=== PATIENT | male | born 1945 | race Caucasian/White ===

== ENCOUNTER 2017-08-26 21:48 | Emergency (ER) | payer OTHER, BC ==
--- NOTE | 2017-08-26 21:50 | PDOC ---
History of Present Illness - History of Present Illness Initial Comments: 08/26/17 22:10 Patient is a 73M who presents today s/p left thumb injury. Patient states that he was slicing coleslaw with a mandolin when he sliced the skin off of the tip of his left thumb. Patient states that it began bleeding profusely and he wrapped it multiple times but the bleeding did not cease so he came to the ER. Patient denies any current pain. Patient is unable to recall his last tetanus. Patient states he is not on blood thinners. ROS General: No fevers or chills, no weakness, no weight loss HEENT: No change in vision. No sore throat, No ear pain Cardiovascular: No chest pain or shortness of breath Respiratory:No cough, or wheezing. Gastrointestinal: No nausea, vomiting, diarrhea or constipation, No rectal bleeding Genitourinary: No dysuria, hematuria, or frequency Musculoskeletal: No joint or muscle pain or swelling Neurologic: No headache, vertigo, dizziness or loss of consciousness Psychiatric: No depression Skin: + laceration to distal portion of left thumb. No rashes or easy bruising Endocrine: No increased thirst or abnormal weight change Allergic: No skin or latex allergy All other systems reviewed and normal PE GENERAL: The patient is awake, alert, and fully oriented, in no acute distress. HEAD: Normal with no signs of trauma. EYES: Pupils equal, round and reactive to light, extraocular movements intact, sclera anicteric, conjunctiva clear. EXTREMITIES: Normal range of motion, no edema. NEUROLOGICAL: Normal speech, normal gait. PSYCH: Normal mood, normal affect. SKIN: 1 cm evulsion to tip of the left thumb. Evulsion does not extend deeper than the superficial fat. <Patricia Jean - Last Filed: 08/26/17 22:15> - General History Source: Patient Exam Limitations: No Limitations - History of Present Illness Initial Comments: A portion of this note was documented by scribe services under my direction. I have reviewed the details of the note, within reason, and agree with the documentation. The case summary and management plan written by me. Procedure note: A tourniquet was placed on the finger and tightened in tell there was no bleeding from the avulsed area. The avulsed area was then closed with Dermabond and the tourniquet was removed with no further bleeding from the avulsed area. A Band-Aid was applied and patient discharged. <Floresita Kilpatrick I - Last Filed: 08/26/17 23:49> - General Chief Complaint: Injury Stated Complaint: SLICED OFF PIECE OF LEFT THUMB Time Seen by Provider: 08/26/17 21:50 Past History <Patricia Jean - Last Filed: 08/26/17 22:15> - Past Medical History Anemia: No Asthma: No Cancer: No Cardiac Disorders: No CVA: No COPD: No CHF: No Dementia: No Diabetes: Yes GI Disorders: Yes (COLONIC POLYP) Disorders: Yes (BPH) HTN: Yes Hypercholesterolemia: Yes Liver Disease: No Seizures: No Thyroid Disease: No - Surgical History Abdominal Surgery: No Appendectomy: No Cardiac Surgery: No Cholecystectomy: No Lung Surgery: No Neurologic Surgery: No Orthopedic Surgery: Yes (LAMINECTOMY CERVICAL AND LUMBAR) - Suicide/Smoking/Psychosocial Hx Smoking History: Former smoker Have you smoked in the past 12 months: No Number of Cigarettes Smoked Daily: 0 If you are a former smoker, when did you quit?: 1985 Hx Alcohol Use: Yes Drug/Substance Use Hx: No Substance Use Type: Alcohol Hx Substance Use Treatment: No <Floresita Kilpatrick I - Last Filed: 08/26/17 23:49> - Past Medical History Allergies/Adverse Reactions: Allergies Allergy/AdvReac Type Severity Reaction Status Date / Time Penicillins Allergy Rash Verified 08/26/17 21:49 Home Medications: Ambulatory Orders Docusate Sodium 100 mg PO PRN capsule 09/24/12 Ergocalciferol (Vitamin D2) [Drisdol] 50,000 unit PO WEEKLY capsule 09/24/12 Rosuvastatin Calcium [Crestor] 10 mg PO DAILY tablet 09/24/12 Aspirin [Cathi Chewable] 81 mg PO DAILY 03/03/15 Metformin HCl [Glucophage] 1,000 mg PO HS 03/03/15 Nebivolol HCl [Bystolic] 2.5 mg PO DAILY 03/03/15 Sitagliptin Phosphate [Januvia] 100 mg PO DAILY 03/03/15 Glipizide [Glipizide Er] 2.5 mg PO TID 04/27/15 Quinapril HCl 20 mg PO DAILY tablet 04/27/15 Cephalexin [Keflex] 500 mg PO TID #15 capsule 08/26/17 Review of Systems - Review of Systems Comments:: 08/26/17 22:11 see HPI <Patricia Jean - Last Filed: 08/26/17 22:15> *Physical Exam - Vital Signs Last Vital Signs Temp Pulse Resp BP Pulse Ox 99 F 68 16 138/83 98 08/26/17 21:57 08/26/17 21:57 08/26/17 21:57 08/26/17 21:57 08/26/17 21:57 - Physical Exam Comments: 08/26/17 22:11 see HPI <Patricia Jean - Last Filed: 08/26/17 22:15> *DC/Admit/Observation/Transfer - Attestations Scribe Attestion: 08/26/17 22:11 Documentation prepared by Patricia Jean, acting as medical screener for Floresita Kilpatrick MD. <Patricia Jean - Last Filed: 08/26/17 22:15> <Floresita Kilpatrick I - Last Filed: 08/26/17 23:49> Diagnosis at time of Disposition: Avulsion of skin of finger Qualifiers: Encounter type: initial encounter Qualified Code(s): S61.209A - Unspecified open wound of unspecified finger without damage to nail, initial encounter - Discharge Dispostion Disposition: HOME Condition at time of disposition: Stable - Prescriptions Prescriptions: Cephalexin [Keflex] 500 mg PO TID #15 capsule - Referrals Referrals: Roscoe Lynn MD [Primary Care Provider] - - Patient Instructions Additional Instructions: U to remove the Band-Aid in 2-3 hours if the thumb is still throbbing and reapply elusive Band-Aid. Change the Band-Aid once a day or if you get it wet however try not to get it wet for the next 72 hours. You were given some gloves that you can wear if you need to shower. To prevent infection take Keflex one tablet 3 times a day for 5 days Return to the emergency department immediately with ANY new, persistent or worsening symptoms. Continue any medications as previously prescribed by your physician. You should follow up with your primary doctor as soon as possible regarding today's emergency department visit. . Please make sure your doctor reviews the results of your emergency evaluation. Thank you for coming to the Emergency Department today for your care. It was a pleasure to see you today. Please note that your evaluation is INCOMPLETE until you follow-up with your doctor. - Post Discharge Activity
[2017-08-26 22:07] VITALS: BP 138/83; PULSE 68; TEMP 99; BMI 37.2
[2017-08-26] MEDS ORDERED: DIPHTH,PERTUSS(ACELL),TET 0.5 ML DISP.SYRIN IM ONE (22:14)
[2017-08-26] MEDS ORDERED: CEPHALEXIN MONOHYDRATE 500 MG CAPSULE (UD) PO ONE (22:20)
[2017-08-26] MEDS ORDERED: CEPHALEXIN MONOHYDRATE 500 MG CAPSULE (UD) ONE (22:24)
== END 2017-08-26 22:28 | disposition home or self-care (01) ==
LOC: FER 21:48
PROC: 3E0234Z Introduction of Serum, Toxoid and Vaccine into Muscle, Percutaneous Approach (ICD-10-PCS; principal; 2017-08-26)
PROC: 0HQGXZZ Repair Left Hand Skin, External Approach (ICD-10-PCS; 2017-08-26)
DX: S61.209A Unspecified open wound of unspecified finger without damage to nail, initial encounter (principal); W45.8XXA Other foreign body or object entering through skin, initial encounter; Y93.G3 Activity, cooking and baking; Y92.9 Unspecified place or not applicable; I10 Essential (primary) hypertension; E78.00 Pure hypercholesterolemia, unspecified; Z87.891 Personal history of nicotine dependence; N40.0 Benign prostatic hyperplasia without lower urinary tract symptoms
CPT/HCPCS: 90715; 99281-25

== ENCOUNTER → 2023-04-18 | Day surgery (SDC) | payer OTHER, BC ==
[2023-04-17 12:34] VITALS: BMI 34.0
[~2023-04-18] MED LIST: BSS (NA/CA/MG/K) BALANCED SALT SOLUTION OPHTH SOLN 15 ML BOTTLE ONE; CARBACHOL 0.01% INTRA-OCULAR 1.5 ML VIAL ONE; LIDOCAINE 1% P/F 10 MG/ML VIAL ONE; MIDAZOLAM HCL 2 MG/2 ML SINGLE DOSE VIAL ONE; NEO/POLYMYX B SULF/DEXAMETH OPHTHALMIC 5ML BOTTLE ONE; PHENYLEPHRINE/KETOROLAC 4 ML VIAL IO ONE
[2023-04-18 12:10] VITALS: RESP 19; TEMP 97.8
[2023-04-18] MEDS: TROPICAMIDE 1% OPHTH SOLN 15 ML BOTTLE ONE ×3 (12:10→12:20)
[2023-04-18] MEDS: PHENYLEPHRINE 2.5% OPTHALMIC DROP 2ML BOTTLE ONE ×3 (12:10→12:20)
[2023-04-18] MEDS: CYCLOPENTOLATE 2% OPHTH SOLN 2 ML BOTTLE ONE ×3 (12:10→12:20)
[2023-04-18] MEDS: CIPROFLOXACIN HCL 0.3% OPHTH 2.5ML BOTTLE ONE ×3 (12:10→12:20)
[2023-04-18 14:53] VITALS: BP 126/72; PULSE 80
== END | disposition home or self-care (01) ==
LOC: FASU 11:36
PROVIDERS: ATTEND Ophthalmology
PROC: 08RK3JZ Replacement of Left Lens with Synthetic Substitute, Percutaneous Approach (ICD-10-PCS; principal; 2023-04-18 13:52)
DX: H26.8 Other specified cataract (principal)
CPT/HCPCS: 66984; V2632; 82962; J1097